=== PATIENT | male | born 1985 ===

== ENCOUNTER 2022-06-04 17:30 | Emergency (ER) ==
[~2022-06-04 17:30] MED LIST: Bupivacaine 0.25% 10 ML SDV INJECT ONE; Ketorolac 60 MG/2 ML SDV IM ONE; Lidocaine 1% 5 ML VIAL INJECT ONE
[2022-06-04] MEDS ORDERED: Cephalexin 500 MG Cap PO ONE (21:15)
== END 2022-06-04 21:30 | disposition home or self-care (01) ==
LOC: MW.ED 17:30
DX: S62.633A Displaced fracture of distal phalanx of left middle finger, initial encounter for closed fracture (principal); W22.8XXA Striking against or struck by other objects, initial encounter; Y92.69 Other specified industrial and construction area as the place of occurrence of the external cause
CPT/HCPCS: 12001; 73140; 96372; 99283; A9270; J1885; J3490